=== PATIENT | female | born 1955 ===

== ENCOUNTER → 2024-01-02 | Outpatient (CLI) | payer MEDICARE, OTHER ==
[~2024-01-02] MED LIST: BUPR75; CARV6.25; CYCL0.05OP; GABA300; IPRATROPIUM BRO30 ML; METF500; OMEP20ER; PRED5; PRENATAL TABLE1 EAC2; PROLIA60 MG/1 ML; TRAZ50; VENL150ER; VITAMIN B125000 MC1
== END | disposition home or self-care (01) ==
LOC: LAB SHORT 14:27 → LAB 14:27
DX: R30.0 Dysuria (principal)
CPT/HCPCS: 87077; 87086; 87186

== ENCOUNTER → 2024-10-21 | Outpatient (CLI) | payer MEDICARE, OTHER | LOC: LAB SHORT 11:53 → LAB 11:53 | DX: R35.0 Frequency of micturition (principal) | CPT/HCPCS: 87086 ==